=== PATIENT | female | born 1970 | race Caucasian/White ===

== ENCOUNTER 2018-08-15 03:27 | Emergency (ER) | payer BC ==
[2018-08-15] MEDS ORDERED: SODIUM CHLORIDE 0.9% 1,000 ML IV STA (03:46)
[2018-08-15] MEDS ORDERED: ONDANSETRON 4 MG/2 ML VIAL IVP STA (04:03)
[2018-08-15] MEDS ORDERED: DEXAMETHASONE SOD PHOSPHATE 10 MG/ML 1 ML VIAL IV STA (04:04)
[2018-08-15] MEDS ORDERED: diphenhydrAMINE 50 MG/ML 1 ML VIAL IVP STA (04:04)
[2018-08-15] MEDS ORDERED: KETOROLAC 30 MG/ML 1 ML VIAL IVP STA (04:04)
--- NOTE | 2018-08-15 04:06 | ED ---
General Adult HPI - General Chief complaint: Headache Stated complaint: Migraine Time Seen by Provider: 08/15/18 03:41 Source: patient Mode of arrival: ambulatory Limitations: no limitations - History of Present Illness Initial comments: Dictation was produced using [employer] dictation software. please excuse any grammatical, word or spelling errors. Chief Complaint: Patient is a 48-year-old female with history of chronic migraines present headache. History of Present Illness: She is a 48-year-old female she has a past medical history of migraines. She presents with headache. States his headache is similar to the headaches she normally experiences. Patient denies any neuro deficits. She does report that it is bifrontal. Patient had these symptoms for about 3 days. No fever, chills or night sweats. Patient has no neck stiffness. He was seen at the urgent care recently and was given a IM Toradol shot. She d id experience some relief however her symptoms return. Patient does not know what triggered her migraines this time. She states she's been resting has serous stress under control has been eating well. The ROS documented in this emergency department record has been reviewed and confirmed by me. Those systems with pertinent positive or negative responses have been documented in the HPI. All other systems are other negative and/or noncontributory. PHYSICAL EXAM: General Impression: Alert and oriented x3, not in acute distress HEENT: Normocephalic atraumatic, extra-ocular movements intact, pupils equal and reactive to light bilaterally, mucous membranes moist. Cardiovascular: Heart regular rate and rhythm, S1&S2 audible, no murmurs, rubs or gallops Chest: Lungs clear to auscultation bilaterally, no rhonchi, no wheeze, no rales Abdomen: Bowel sounds present, abdomen soft, non-tender, non-distended, no organomegaly Musculoskeletal: Pulses present and equal in all extremities, no peripheral edema Motor: no focal deficits noted Neurological: CN II-XII grossly intact, no focal motor or sensory deficits noted Skin: Intact with no visualized rashes Psych: Normal affect and mood ED course: 48-year-old female presents with acute headache. She has a history of migraines. She reports that her headache is similar to her usual headaches. On arrival are within acceptable limits.Patient given headache cocktail with improvement of symptoms. Patient observed in emergency department for several hours. She did report at one point that her symptoms are still slightly persisted. Patient given Decadron and magnesium. Patient reevaluated after that and did report dramatic improvement of her symptoms. Discussed with patient at length migraine triggers. She is told to get rest, eat a well- balanced diet, stay hydrated avoid stress. She is advised follow-up with her neurologist. Patient understandable agreeable to disposition. Patient has triptan medications that she can take at home. Return parameters discussed. Patient to be discharge. - Related Data Home Medications Medication Instructions Recorded Confirmed Cyclobenzaprine [Flexeril] 10 mg PO HS 08/15/18 08/15/18 DULoxetine HCL [Cymbalta] 60 mg PO DAILY 08/15/18 08/15/18 Gabapentin [Neurontin] 300 mg PO TID 08/15/18 08/15/18 ZOLMitriptan [Zomig] 5 mg PO ONCE PRN 08/15/18 08/15/18 Allergies Allergy/AdvReac Type Severity Reaction Status Date / Time No Known Allergies Allergy Verified 08/15/18 03:34 Review of Systems ROS Statement: Those systems with pertinent positive or pertinent negative responses have been documented in the HPI. ROS Other: All systems not noted in ROS Statement are negative. Past Medical History Past Medical History: No Reported History, Asthma Additional Past Medical History / Comment(s): Headahces History of Any Multi-Drug Resistant Organisms: None Reported Past Surgical History: Section Past Psychological History: ADD/ADHD Smoking Status: Never smoker Past Alcohol Use History: Occasional Past Drug Use History: None Reported General Exam Limitations: no limitations Course Vital Signs 08/15/18 03:28 Temperature 97.5 F L Pulse Rate 83 Respiratory 18 Rate Blood Pressure 115/84 O2 Sat by Pulse 100 Oximetry Disposition Clinical Impression: Headache Disposition: HOME SELF-CARE Condition: Good Instructions (If sedation given, give patient instructions): Acute Headache (ED) Is patient prescribed a controlled substance at d/c from ED?: No Referrals: Gaurang Brown MD [Primary Care Provider] - 1-2 days Time of Disposition: 06:27
[2018-08-15] MEDS: MAGNESIUM SULFATE-D5W PMX 1 GM in DEXTROSE/WATER 1 100ML.BAG IVPB SCH ×2 (05:57→06:54)
[2018-08-15 08:46] VITALS: BP 115/82; PULSE 91; RESP 18; TEMP 98.2
== END 2018-08-15 08:45 | disposition home or self-care (01) ==
LOC: EC 03:27
DX: R51 Headache (principal); Z79.899 Other long term (current) drug therapy; Z86.69 Personal history of other diseases of the nervous system and sense organs
CPT/HCPCS: 99283; 96374; 96375 ×4; 96361; J1200; J1100; J2405; J1885; J3475

== ENCOUNTER → 2018-11-20 | Outpatient (CLI) | payer OTHER ==
--- NOTE | 2018-11-20 12:22 | XR ---
Left knee HISTORY: Trauma and pain 3 views of the left knee Bone mineralization, joint spaces and alignment are maintained. Some lucency along the patella medial margin seen on the oblique view is not thought likely to represent fracture. Suprapatellar increased density is compatible joint effusion. There is calcification at the level of the insertion of the qu adriceps tendon on the patella, likely enthesophyte or calcific tendinitis. Some remodeling of the me dial compartment suggests underlying osteoarthritic change. IMPRESSION: Joint effusion, osteoarthritis. Findings at the medial aspect of the patella. Not likely to represent fracture. Knee MRI may be of benefit. Additional findings above.
== END | disposition home or self-care (01) ==
LOC: RADXRMAIN 11:55
PROVIDERS: ATTEND Emergency Medicine
DX: M17.12 Unilateral primary osteoarthritis, left knee (principal); M65.88 Other synovitis and tenosynovitis, other site

== ENCOUNTER → 2018-11-25 | Outpatient (CLI) | payer OTHER ==
--- NOTE | 2018-11-26 00:07 | MR ---
EXAMINATION TYPE: MR knee LT wo con DATE OF EXAM: 11/25/2018 COMPARISON: None HISTORY: Knee pain with limited motion, sweling after a fall on 11/19/18. TECHNIQUE: Multiplanar, multisequence imaging of the left knee is performed without IV contrast. FINDINGS: There is a moderate knee joint effusion. The lateral meniscus is intact. There is small horizontal te ar of the posterior horn of the medial meniscus that does not extend to the articular surface. The collateral ligaments are intact. There is mild subcutaneous edema around the anterior knee. The a nterior and posterior cruciate ligaments are intact. There is no evidence of a fracture. I see no bon y destructive process. Knee joint spaces are fairly normal. Collateral ligaments appear intact. IMPRESSION: Knee joint effusion. Small horizontal intrasubstance tear of posterior horn medial meniscus. Mild ant erior subcutaneous edema. No fracture.
== END ==
LOC: RADMRIMAIN 21:25
PROVIDERS: ATTEND Orthopaedic Surgery
DX: S83.242A Other tear of medial meniscus, current injury, left knee, initial encounter (principal)

== ENCOUNTER → 2019-07-07 | Outpatient (CLI) | payer BC | END | disposition home or self-care (01) | LOC: LABWHC1 09:29 | PROVIDERS: ATTEND Orthopaedic Surgery | DX: B07.8 Other viral warts (principal) | CPT/HCPCS: 87635 ==

== ENCOUNTER → 2023-06-26 | Outpatient (CLI) | payer BC ==
[2023-06-26 12:25] VITALS: BP 117/81; PULSE 85; RESP 18; TEMP 98.3
--- NOTE | 2023-06-26 12:50 | P.SLEEP ---
History of Present Illness DATE: 06/26/2023 CONSULTATION/NEW PATIENT EVALUATION HISTORY OF PRESENT ILLNESS/SLEEP-WAKE EVALUATION: 52-year-old lady had been ev aluated in the sleep center for possible obstructive sleep apnea hypopnea syndrome. SLEEP SCHEDULE: Usually sleep schedule from 8 PM to 5 AM on weekdays and from 8 PM to 8 AM on weekend. FALLING ASLEEP: No problems with falling asleep. DURING SLEEP: Patient has loud snoring and witnessed episodes of stop breathing during the sleep by her . Patient wakes up from sleep 2 times with nocturia. Positive history of grinding teeth during sleep. No history of hypnogogical hallucinations, sleep paralysis, or cataplexy. DURING THE DAY/WAKE STATE: In the morning patient wake up tired, has d ifficulties to pay attention, falling asleep during the day, has problems with memory and concentration, depression and anxiety. [place] sleepiness scale is significantly increased to 15. Patient takes 4-hour nap on weekends. PAST MEDICAL HISTORY: Migraine episodes, often started in the morning after awakenings, hypertension, asthma of exercise, acid reflux. PAST SURGICAL HISTORY: . MEDICATIONS: Please see below. SOCIAL HISTORY: Please see below. FAMILY HISTORY: Heart problems, sleep apnea, cancer, mental illness. REVIEW OF SYSTEMS: Loud snoring, multiple awakenings from sleep, sleepiness during the day. No fevers. No double vision. No recent chest pain. No shortness of breath. No abdominal pain. No bleeding episodes. No blood in urine. No seizure episodes. PHYSICAL EXAMINATION: GENERAL: A pleasant patient without any distress. VITAL SIGNS: Please see below. Weight is 186.8 pounds, BMI 30.0. HEENT: PERRLA, EOMI. Evaluation of oropharynx showed tongue protrudes midline, low position of soft palate Mallampati 23, short distance between soft palate and posterior pharyngeal wall. NECK: Supple. No JVD. Thyroid is not palpable. 15.5 inches in circumference. LUNGS: Clear to percussion and to auscultation. Good air exchange. No wheezing or rhonchi. HEART: S1, S2 regular. No murmurs, gallops or rubs. ABDOMEN: Soft and nontender. Bowel sounds are present. No organomegaly appreciated. EXTREMITIES: No clubbing or cyanosis. DIGITAL PHOTOGRAPHIC PRINTER: Awake, alert, and oriented x3. Cranial nerves 2 to 7 intact. There is no fasciculation or atrophy noted. No focal deficits observed. ASSESSMENT: 1. Loud snoring, witnessed episodes of stop breathing during the sleep, small oropharyngeal airspace, sleepiness during the day with [place] Sleepiness Scale 15. Obstructive sleep apnea hypopnea syndrome. 2. Migraine, episodes often started in the morning after awakenings. 3. Mild obesity BMI 30.0. 4. Asthma of exercise. 5 history of hypertension. 6 . Acid reflux. 7. Status post C-sections. PLAN: 1. Home sleep apnea test for evaluation of patient's breathing during sleep. 2. Following plan after reading sleep study. 3. Preferable position during sleep on the side. 4. No driving if patient feels any sleepiness. Patient is aware of civil and criminal liability for unsafe driving. 5. Sleep hygiene with regular sleep time for at least 7.5-8 hours. 6. Watching and losing weight. Thank you very much for referring this patient for consultation. Sincerely, Jose Alejandro Armendariz MD, PhD, FAASM. Diplomat of [place] [employer], Sleep Medicine Board by [place] [employer] [place] [employer]er of [facility] [place] Past Medical History Past Medical History: No Reported History, Asthma, Hypertension Additional Past Medical History / Comment(s): Headahces, PT STATES WATCHING HER BP - NOT TREATING IT (DISTOLIC IN THE 90'S), ARTHRITIS, SNORING, HEADACHES, ACID REFLUX History of Any Multi-Drug Resistant Organisms: None Reported Past Surgical History: Section Additional Past Surgical History / Comment(s): C - SECTION X 3 Past Psychological History: ADD/ADHD Additional Psychological History / Comment(s): 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 Smoking Status: Current every day smoker Past Alcohol Use History: Occasional Past Drug Use History: None Reported Medications and Allergies Home Medications Medication Instructions Recorded Confirmed Type Cyclobenzaprine [Flexeril] 10 mg PO HS 08/15/18 08/15/18 History DULoxetine HCL [Cymbalta] 300 mg PO DAILY 08/15/18 06/26/23 History Gabapentin [Neurontin] 300 mg PO ONCE 08/15/18 06/26/23 History ZOLMitriptan [Zomig] 5 mg PO ONCE PRN 08/15/18 08/15/18 History SUMAtriptan [Imitrex] 5 mg NS PRN 06/26/23 History SUMAtriptan succinate [Imitrex] 4 mg SQ PRN 06/26/23 History Allergies Allergy/AdvReac Type Severity Reaction Status Date / Time No Known Allergies Allergy Verified 08/15/18 03:34 Physical Exam Vitals: Vital Signs Temp Pulse Resp BP Pulse Ox 06/26/23 12:05 98.3 F 85 18 117/81 96 Intake and Output 06/25/23 06/26/23 06/26/23 22:59 06:59 14:59 Other: Weight 84.595 kg Sleep Note - Sleep Data ESS Total: 15 - Sleep Note Sleep Note: Temperature: 98.3 F Pulse Rate: 85 Respiratory Rate: 18 Blood Pressure: 117/81 SpO2: 96 Height: 5 ft 6 in Weight: 84.595 kg BMI: Neck Circumference: 15.5
== END ==
LOC: 3 N SLEEP 11:37
PROVIDERS: ATTEND Internal Medicine
DX: G47.33 Obstructive sleep apnea (adult) (pediatric) (principal); G43.909 Migraine, unspecified, not intractable, without status migrainosus; G47.10 Hypersomnia, unspecified; E66.9 Obesity, unspecified; J45.909 Unspecified asthma, uncomplicated; K21.9 Gastro-esophageal reflux disease without esophagitis; Z98.890 Other specified postprocedural states; Z68.30 Body mass index [BMI] 30.0-30.9, adult; Z86.79 Personal history of other diseases of the circulatory system; Z79.899 Other long term (current) drug therapy
CPT/HCPCS: 99211

== ENCOUNTER → 2023-07-01 | Outpatient (CLI) | payer BC ==
--- NOTE | 2023-07-02 14:44 | P.PCN ---
Description of Procedure: CLINICAL: A home sleep apnea test has been done for confirmation of possible obstructive sleep apnea-hypopnea syndrome. DESCRIPTION OF PROCEDURE: RESULTS: Recording time was 12 hours 00 minutes. Evaluation time was 7 hours 58 minutes. Evaluation time is sufficient for making conclusion about results of the test. Raw data of sleep recording has been reviewed and is adequate. Respiratory channel showed 6 apneas and 13 hypopneas. Apnea-hypopnea index was 2.4 per hour. Pulse rate in the range between minimum 55, maximum 191, average 70 by computer calculation. Lowest desaturation was 81%. IMPRESSION: 1. No significant respiratory abnormalities have been documented by results of home sleep apnea test 2. Patient have been present with symptoms of excessive daytime sleepiness with [place] Sleepiness Scale 15, which dictate necessity to include narcolepsy and idiopathic hypersomnia differential diagnosis. Please see other impressions from consultation. PLAN: 1. Multiple sleep latency test for objective evaluation symptoms of excessive daytime sleepiness. 2. Following plan after reading sleep study. 3. Watching weight. 4. Sleep hygiene with regular time in bed for at least 8 hours. 5. No driving if feeling any sleepiness. Thank you very much for allowing me to participate in the management of your patient. Sincerely, Jose Alejandro Armendariz MD, PhD, FAASM Diplomat of [place] [employer] Sleep Medicine Board of [place] [employer] Child [employer] Specialist of [facility] [place]
== END ==
LOC: 3 N SLEEP 16:26
PROVIDERS: ATTEND Internal Medicine
DX: G47.33 Obstructive sleep apnea (adult) (pediatric) (principal); G47.10 Hypersomnia, unspecified